=== PATIENT | female | born 2000 | race Caucasian/White ===

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

== ENCOUNTER 2023-09-19 22:54 | Emergency (ER) | payer MEDICAID ==
[~2023-09-19] VITALS: Ht 162.6 cm; Wt 94.1 kg
[~2023-09-19 22:54] MED LIST: MOTRIN 800800 MG/TAB PO; NORCO 325 MG-51 TAB PO
[2023-09-19 23:04] VITALS: TEMP 98.8
[2023-09-19] MEDS ORDERED: NS 1,000 ML IV ONE (23:45)
[2023-09-20 00:06] LABS: COLLECTION METHOD CLEAN CATCH
[2023-09-20 00:28] LABS: ALBUMIN 3.8 g/dL (3.5-5.0); BILIRUBIN,TOTAL 0.2 mg/dL (0.2-1.2); CALCIUM 9.5 mg/dL (8.4-10.2); CREATININE, serum 0.69 mg/dL (0.57-1.11); POTASSIUM 3.6 mEq/L (3.5-4.5); TOTAL PROTEIN 7.4 g/dl (6.2-8.1)
[2023-09-20 00:39] LABS: BASO # 0.1 K/mm3 (0.0-0.2); BASO % 0.5 % (0.0-2.0); EOS # 0.3 K/mm3 (0.0-0.7); EOS % 1.9 % (0.0-4.0); GRAN # 8.4 K/mm3 (1.4-6.5); GRAN % 64.7 % (42.2-75.2); HEMOGLOBIN 12.3 g/dl (12.5-16.0); LYMPH # 3.4 K/mm3 (1.2-3.4); LYMPH % 25.7 % (20.0-51.0); MEAN CELL VOLUME 82 fl (80.0-100.0); MEAN CORPUSCULAR HEMOGLOBIN 26 pg (27-31); MEAN CORPUSCULAR HGB CONC 32 g/dl (33.0-37.0); MEAN PLATELET VOLUME 11.4 fl (7.4-10.4); MONO # 0.9 K/mm3 (0.1-0.6); MONO % 6.8 % (1.7-9.3); PLATELET COUNT 274 K/mm3 (130-400); RED BLOOD COUNT 4.78 M/mm3 (4.10-5.30); REDCELL DISTRIBUTION WIDTH-CV 13.8 % (11.5-14.5)
[2023-09-20 00:43] LABS: C-REACTIVE PROTEIN 0.38 mg/dL (0.00-0.50)
[2023-09-20 00:55] LABS: URINE APPEARANCE CLEAR (CLEAR/HAZY); URINE BLOOD TRACE (NEGATIVE); URINE COLOR YELLOW (YELLOW); URINE GLUCOSE NEGATIVE (NEGATIVE); URINE KETONE NEGATIVE (NEGATIVE); URINE NITRATE NEGATIVE (NEGATIVE); URINE PROTEIN(semi-quant) NEGATIVE (NEGATIVE); URINE UROBILINOGEN 0.2 E.U/dL (0.2-1.0)
[2023-09-20 02:24] VITALS: BP 125/75; PULSE 80
== END 2023-09-20 02:24 | disposition home or self-care (01) ==
LOC: COL.ER 22:54
PROVIDERS: Emergency Medicine
DX: O26.891 Other specified pregnancy related conditions, first trimester (principal); R10.30 Lower abdominal pain, unspecified; O99.011 Anemia complicating pregnancy, first trimester; D64.89 Other specified anemias; Z3A.01 Less than 8 weeks gestation of pregnancy
CPT/HCPCS: J7030

== ENCOUNTER 2023-11-09 19:33 | Emergency (ER) | payer MEDICAID ==
[~2023-11-09] VITALS: Ht 162.6 cm; Wt 90.0 kg
[2023-11-09 19:45] VITALS: BP 116/70; TEMP 97.9
[2023-11-09] MEDS ORDERED: Amoxicillin/Clavulanate K+ 875/125 MG TAB PO ONE (20:15)
[2023-11-09] MEDS ORDERED: AMOXICILLIN 8751 TAB PO (20:15)
[2023-11-09] MEDS ORDERED: PREDNISONE20 MG PO (20:15)
[2023-11-09 20:26] VITALS: PULSE 86
== END 2023-11-09 20:26 | disposition home or self-care (01) ==
LOC: COL.ER 19:33
DX: O99.512 Diseases of the respiratory system complicating pregnancy, second trimester (principal); J32.0 Chronic maxillary sinusitis; Z3A.15 15 weeks gestation of pregnancy

== ENCOUNTER 2023-11-10 01:31 | Emergency (ER) | payer MEDICAID ==
[~2023-11-10] VITALS: Ht 162.6 cm; Wt 90.0 kg
[~2023-11-10 01:31] MED LIST changes: +AMOXICILLIN 8751 TAB PO; +PREDNISONE20 MG PO
[2023-11-10 01:37] VITALS: BP 116/78; TEMP 97.7
[2023-11-10] MEDS ORDERED: Albuterol 90 MCG/PUFF 8 GM MDI IH ONE (02:00)
[2023-11-10] MEDS ORDERED: Fluticasone Nasal 50 MCG/Spray 16 GM BOTTLE NS ONE (02:15)
[2023-11-10 02:49] VITALS: PULSE 89
== END 2023-11-10 03:09 | disposition home or self-care (01) ==
LOC: COL.ER 01:31
DX: J01.90 Acute sinusitis, unspecified (principal)